=== PATIENT | male | born 1945 | race Caucasian/White ===

== ENCOUNTER 2020-03-26 17:21 | Emergency (ER) | payer OTHER ==
[2020-03-26 17:48] VITALS: BP 136/62; PULSE 95; TEMP 99.2; BMI 25.0
== END 2020-03-26 19:46 | disposition left against medical advice (07) ==
LOC: JER 17:21
DX: R05 Cough (principal); R50.9 Fever, unspecified; J02.9 Acute pharyngitis, unspecified
CPT/HCPCS: 71046-TC-FY; 93005; 93010; 99281-25

== ENCOUNTER 2021-08-23 10:40 | Emergency (ER) | payer OTHER ==
[2021-08-23 11:01] VITALS: BP 151/76; PULSE 72; TEMP 97.6; BMI 23.5
[2021-08-23] MEDS ORDERED: BACITRACIN 15 GM TUBE TOPICAL OINTMENT ONE (12:22)
[2021-08-23] MEDS ORDERED: IBUPROFEN 600 MG TABLET (FP) PO ONE (12:23)
== END 2021-08-23 12:36 | disposition home or self-care (01) ==
LOC: JERFT 10:40
DX: S97.81XA Crushing injury of right foot, initial encounter (principal); M79.671 Pain in right foot; W22.8XXA Striking against or struck by other objects, initial encounter
CPT/HCPCS: 73610-TC-RT-FY; 73630-TC-RT-FY; 99283-25